=== PATIENT | female | born 2000 | race Hispanic/Latino ===

== ENCOUNTER 2025-01-26 18:25 | Emergency (ER) | payer OTHER ==
[~2025-01-26] VITALS: Ht 165.1 cm; Wt 116.6 kg
[2025-01-26 18:48] VITALS: PULSE 78; RESP 16; TEMP 98.5
[2025-01-26 19:07] LABS: BASOPHILS # (AUTO) 0.1 (0.0-0.1); BASOPHILS % 0.5 % (0.0-1.0); EOSINOPHILS # (AUTO) 0.3 (0.0-0.4); EOSINOPHILS % 3.2 % (0.0-6.0); HEMOGLOBIN 13.1 g/dL (12.0-16.0); LYMPHOCYTES # (AUTO) 2.4 (1.0-3.2); MEAN CORPUSCULAR HEMOGLOBIN 28.1 pg (28-32); MEAN CORPUSCULAR HGB CONC 32.8 g/dL (31-35); MEAN CORPUSCULAR VOLUME 85.7 fL (81-99); MONOCYTES # (AUTO) 0.4 (0.2-0.8); MONOCYTES % 4.2 % (4.4-11.3); NEUTROPHILS # (AUTO) 6.9 (2.1-6.9); NEUTROPHILS % 67.9 % (38.7-80.0); PLATELET COUNT 266 x10e3/uL (140-360); RED BLOOD COUNT 4.67 x10e6/uL (3.6-5.1); RED CELL DISTRIBUTION WIDTH 13.8 % (11.7-14.4); WHITE BLOOD COUNT 10.16 x10e3/uL (4.8-10.8)
[2025-01-26] MEDS: ASPIRIN 81 MG CHEW TAB PO ONE (19:09)
[2025-01-26 19:14] LABS: AMPHETAMINES SCREEN,URINE NEGATIVE (NEGATIVE); BENZODIAZEPINES SCREEN,URINE NEGATIVE (NEGATIVE); CANNABINOIDS SCREEN,URINE NEGATIVE (NEGATIVE); COCAINE SCREEN,URINE NEGATIVE (NEGATIVE); METHADONE SCREEN, URINE NEGATIVE (NEGATIVE); OPIATES SCREEN,URINE NEGATIVE (NEGATIVE); PHENCYCLIDINE SCREEN,URINE NEGATIVE (NEGATIVE); PREGNANCY TEST, URINE NEGATIVE (NEGATIVE)
[2025-01-26 19:32] LABS: ALBUMIN/GLOBULIN RATIO 1.2 (0.8-2.0); ANION GAP 14.2 mmol/L (8-16); BILIRUBIN,TOTAL 0.6 mg/dL (0.2-1.2); CALCIUM 9.3 mg/dL (8.4-10.2); CREATININE, SERUM 0.86 mg/dL (0.57-1.11); POTASSIUM 4.2 mmol/L (3.5-5.1); TOTAL PROTEIN 7.4 g/dL (6.5-8.1)
[2025-01-26 19:38] LABS: TROPONIN I 0.008 ng/mL (0-0.300)
[2025-01-26] MEDS: MAGNESIUM/ALUMINUM/SIMETHICONE 30 ML UDC PO STA (20:35)
[2025-01-26] MEDS: KETOROLAC TROMETHAMINE 30 MG/ML VIAL IV STA (20:35)
[2025-01-26] MEDS: LIDOCAINE VISC 2% SOLN 15 ML UDC PO STA (20:36)
[2025-01-26] MEDS: BELLADONNA ALK/PHENOBARBITAL 5 ML UDC PO ONE (20:37)
[2025-01-26 20:49] VITALS: BP 120/87; PULSE 85; RESP 16; TEMP 98.9; O2SAT 97
== END 2025-01-26 20:51 | disposition home or self-care (01) ==
LOC: ER 18:34
DX: R06.02 Shortness of breath (principal); R07.89 Other chest pain; R00.2 Palpitations; R94.31 Abnormal electrocardiogram [ECG] [EKG]; F17.210 Nicotine dependence, cigarettes, uncomplicated
CPT/HCPCS: 36415; 71045; 80053; 80307; 81025; 82550; 83690; 83880; 84484; 85025; 93005; 99284; J1885

== ENCOUNTER 2025-03-19 23:00 | Emergency (ER) | payer OTHER ==
[~2025-03-19] VITALS: Ht 165.1 cm; Wt 117.9 kg
[2025-03-19 23:28] VITALS: PULSE 75; RESP 18; TEMP 98.6
[2025-03-19 23:29] LABS: LEUKOCYTE ESTERASE ,URINE NEGATIVE (NEGATIVE); PROTEIN,URINE DIPSTICK NEGATIVE (NEGATIVE); URINE UROBILINOGEN 0.2 mg/dL (0.2 - 1); WBC,URINE (MAN) 0-5 /HPF (0-5)
[2025-03-19 23:44] LABS: EPITHELIAL CELLS,URINE MANY /LPF
[2025-03-20 00:15] LABS: BASOPHILS % 0.7 % (0.0-1.0); EOSINOPHILS % 5.6 % (0.0-6.0); LYMPHOCYTES % 23.5 % (18.0-39.1); MONOCYTES % 5.2 % (4.4-11.3); NEUTROPHILS % 64.7 % (38.7-80.0); RED CELL DISTRIBUTION WIDTH 13.6 % (11.7-14.4)
[2025-03-20] MEDS: SODIUM CHLORIDE 0.9% 1000ML 1,000 ML IV STA (00:18)
[2025-03-20] MEDS: ACETAMINOPHEN 325 MG TAB PO STA (00:18)
[2025-03-20 00:42] LABS: PREGNANCY TEST, URINE POSITIVE (NEGATIVE)
[2025-03-20 00:43] LABS: EST GLOMERULAR FILTRATION RATE 100.0 ML/MIN (>=60)
[2025-03-20] MEDS ORDERED: CEPHALEXIN500 MG PO (00:53)
[2025-03-20 01:08] VITALS: BP 118/62; PULSE 80; RESP 20; O2SAT 99
== END 2025-03-20 01:00 | disposition home or self-care (01) ==
LOC: ER 23:09
DX: O26.891 Other specified pregnancy related conditions, first trimester (principal); O21.0 Mild hyperemesis gravidarum; R10.31 Right lower quadrant pain
CPT/HCPCS: 36415; 80053; 81001; 81025; 83690; 84702; 85025; 99283; J7030

== ENCOUNTER 2025-03-21 14:24 | Emergency (ER) | payer OTHER ==
[~2025-03-21 14:24] MED LIST: CEPHALEXIN500 MG PO
== END 2025-03-21 16:16 | disposition short-term general hospital (02) ==
LOC: ER 16:16
DX: N93.8 Other specified abnormal uterine and vaginal bleeding (principal)